=== PATIENT | female | born 1955 | race Caucasian/White ===

== ENCOUNTER 2017-11-06 06:19 | Inpatient (IN) | payer OTHER ==
[~2017-11-06] VITALS: Ht 167.6 cm; Wt 124.7 kg
--- NOTE | ~2017-11-06 | O ---
[facility] [place] [address] OPERATIVE REPORT Name: CHRISTIAN KHAN Room #: 411-P ADM IN M.R.#: [id number] Admission: 11/06/17 Attend Phys: Layne Harper Discharge: Date of : 51 Report #: [id number] THIS REPORT FOR: //name// CC: Layne Jetttami DATE OF SERVICE: 11/09/2017 SURGEON: Sundeep Sainz MD SHOE CEMENTER: None. PREOPERATIVE DIAGNOSES: 1. Gallstone pancreatitis. 2. Morbid obesity (body mass index 44.4). 3. History of Burkitt's lymphoma. 4. Hyperlipidemia. 5. Gastroesophageal reflux disease. 6. Hypothyroidism. 7. Post-chemotherapy neuropathy. POSTOPERATIVE DIAGNOSES: 1. Gallstone pancreatitis. 2. Morbid obesity (body mass index 44.4). 3. History of Burkitt's lymphoma. 4. Hyperlipidemia. 5. Gastroesophageal reflux disease. 6. Hypothyroidism. 7. Post-chemotherapy neuropathy. PROCEDURE: Laparoscopic cholecystectomy with intraoperative cholangiogram. ANESTHESIA: General endotracheal anesthesia and local anesthetic. ESTIMATED BLOOD LOSS: 5 mL. SPECIMEN: Gallbladder. COMPLICATIONS: None appreciated. INDICATIONS FOR PROCEDURE: This is a 62-year-old female patient who developed left-sided abdominal pain and nausea several days ago. CT revealed changes consistent with acute pancreatitis and cholelithiasis as well as hepatic steatosis. Her lipase was elevated at 3544 at the time of her admission. She underwent serial abdominal exams and her lipase was followed. Since her admission, her lipase has normalized. The patient presents now for laparoscopic [facility] [address] [place] [address] OPERATIVE REPORT Name: CHRISTIAN KHAN Room #: 411-P ADM IN M.R.#: [id number] Admission: 11/06/17 Attend Phys: Layne Harper Discharge: Date of : 51 Report #: [id number] cholecystectomy with intraoperative cholangiogram. OPERATIVE FINDINGS: Upon entrance into the abdominal cavity, the liver showed mild steatosis, but no terrell steatohepatitis. The gallbladder itself did not appear to be overtly acutely inflamed; however, there was some edema in the tissue. The stomach, small-bowel and colon and the surrounding area appeared otherwise normal. The critical view consisting of the cystic artery, cystic duct and lower edge of the gallbladder forming a window through which the liver was visible was seen prior to clipping the cystic duct for cholangiogram. The cholangiogram was normal with no filling defects within the biliary tree. Contrast flowed freely into the duodenal sweep. Three clips remained on the cystic duct stump after division of the duct. No other significant intra-abdominal pathology was seen. At the conclusion of the operation, sponge, needle, and instrument counts were correct. There was no evidence for iatrogenic injury. The patient tolerated the procedure well. DESCRIPTION OF PROCEDURE IN DETAIL: After the benefits and risks of the procedure were explained to the patient which include but are not limited to risks of bleeding, infection, injury to the biliary tree, injury to adjacent organs, risk of DVT, pulmonary embolus, postoperative pain and postoperative expectations informed consent was obtained. The patient was identified in the preoperative holding area. The patient was then given IV antibiotics as documented in the chart to comply with the SCIP protocol. The patient was taken to the operating room and was placed in the supine position. The patient was given IV sedation and was intubated without incident. A time-out was performed to correctly identify the patient and procedure. SCDs were placed on the patient's bilateral lower extremities. The patient's abdomen was then prepped and draped in the standard sterile fashion with ChloraPrep. Local anesthetic was infiltrated into the skin and subcutaneous tissue. A periumbilical incision was made with a #15 blade scalpel. The 11-mm Visiport was then placed intraperitoneally with the 10-mm 0-degree angled laparoscope. After confirmation of placement within the peritoneal cavity, the scope was changed to a 10-mm 30 degree angled laparoscope and pneumoperitoneum was achieved with insufflation of carbon dioxide. The patient was placed in the reverse Trendelenburg position, rotated to the patient's left. A subxiphoid 5 mm and right subcostal 5 mm ports times 2 were placed under direct visualization after local anesthetic was infiltrated into the skin and subcutaneous tissue and appropriately sized incisions were made. Operative findings are as noted above. The dome of the gallbladder was retracted in a cephalad direction. The gallbladder peritoneum was scored medially and laterally after takedown of the adhesions to the gallbladder. Dissection was carried out around the cystic artery and cystic duct to identify each structure as entering directly into the gallbladder. The critical view as described above was seen. A Hemoclip was then placed on the cystic duct at its junction with the gallbladder. A ductotomy was made and the cholangiocatheter was passed into the cystic duct. [facility] [address] [place] [address] OPERATIVE REPORT Name: CHRISTIAN KHAN Room #: 411-P ADM IN M.R.#: [id number] Admission: 11/06/17 Attend Phys: Layne Harper Discharge: Date of : 51 Report #: [id number] A clip was placed, contrast was then injected and cholangiogram findings are as noted above. The cholangiocatheter was then removed and the cystic duct was triply clipped distal to the ductotomy. The duct was divided at the ductotomy site with the ultrasonic scalpel. The cystic artery was then divided with the device as well with good hemostasis. The gallbladder was then dissected off the liver bed with the Harmonic scalpel and after fully removing the gallbladder, it was placed in an Endopouch and then removed through the periumbilical port site. The abdominal cavity was then reentered. Other operative findings are as noted above. The liver bed was made hemostatic with electrocautery. After ensuring final hemostasis and ensuring that the clips were secure, the periumbilical port site fascial opening was closed with a simple interrupted 0 PDS suture under direct visualization using the Errol Lopez laparoscopic fascial closure device. The ports were removed and the abdominal cavity was desufflated. The fascial suture was tied. Interrupted subcuticular 4-0 Monocryl sutures and Dermabond were used to close the skin. The patient tolerated the procedure well. The patient was awakened, extubated and taken to the recovery room in stable condition with no apparent intraoperative complications. <ELECTRONICALLY SIGNED> By: Sundeep Sainz MD, FACS 11/10/17 1457 1031 1148 Sundeep Sainz MD, FACS /nt
--- NOTE | ~2017-11-06 | S ---
[facility] [place] [address] SURGICAL PATH RPT PROCEDURE Name: CHRISTIAN KHAN Room #: 411-P DIS IN M.R.#: [id number] Admission: 11/06/17 Date of : 51 Discharge: 11/10/17 Report #: [id number] Path Case #: [id number] PATHOLOGY REPORT COLLECTION DATE: 11/09/2017 RECEIVED DATE: 11/10/2017 SUBMITTING PHYS: Dr. Sundeep Sainz OTHER PHYS: Dr. Layne Tyler SPECIMEN(S) RECEIVED: A.Gallbladder * * * * * * * * * * * * FINAL DIAGNOSIS: Gallbladder, cholecystectomy: - Moderate acute and chronic cholecystitis. - Cholelithiasis. PATHOLOGIST: Gisel Pena M.D. REPORT ELECTRONICALLY SIGNED BY: Gisel Pena M.D. DATE/TIME: 11/11/2017 16:19 * * * * * * * * * * * * GROSS PATHOLOGY: Received in formalin labeled "Shaylee Khan, gallbladder" and consists of a previously opened gallbladder measuring 4.7 x 2.6 cm in greatest dimension. The serosa is glistening and green. The neck region is inked black. The wall averages 0.4 cm thick. The mucosa is velvety and green. Also within the container is a 0.7 cm black and spiky calculus. Erp Engineer sections are submitted as A1. (HAROON; 11/10/2017) CLINICAL HISTORY: Gallbladder disease INITIAL CPT CODE(S): A; 64140 Professional services performed by [facility] at [facility] [address], [place] [address] Technical services performed by [facility] at [address] [place] [id number]. [facility] [address] [place] [address] SURGICAL PATH RPT PROCEDURE Name: BILLCHRISTIAN MCKAYLA Room #: 411-P DIS IN M.R.#: [id number] Admission: 11/06/17 Date of : 51 Discharge: 11/10/17 Report #: [id number] Path Case #: [id number] [facility] [address] [address] PHONE: [phone] DIRECTOR: Juve Katz M.D. * * * END OF REPORT * * *
--- NOTE | ~2017-11-06 | HC ---
[facility] [place] [address] CONSULTATION Name: CHRISTIAN KHAN Room #: 411-P ADM IN M.R.#: [id number] Admission: 11/06/17 Attend Phys: Layne Harper Discharge: Date of : 51 Report #: [id number] THIS REPORT FOR: //name// CC: Tari Tyler MD DATE OF SERVICE: 11/07/2017 REASON FOR CONSULTATION: Abdominal pain. HISTORY OF PRESENT ILLNESS: This is a 62-year-old morbidly obese female patient who was seen in the [place] [facility] with left-sided abdominal pain and nausea starting a couple of days ago. She had undergone incision and drainage of the forehead cyst in her primary care physician's office and had been on doxycycline. She reports having had diarrhea for 2 days ending on Friday. She was seen in the Emergency Room with persistent/worsening abdominal pain, favoring her left side where she was found to have leukocytosis and an elevated lipase. Her CT scan showed findings suggestive of acute pancreatitis as well as cholelithiasis and hepatic steatosis. I have been asked to see the patient for further evaluation and treatment. She did undergo an MRCP, which also showed the acute pancreatitis and peripancreatic edema with no evidence for pseudocyst. There was no choledocholithiasis or biliary ductal dilatation. The patient's lipase remains elevated today and her leukocytosis has worsened. PAST MEDICAL HISTORY: Significant for Burkitt's lymphoma, morbid obesity, hyperlipidemia, GERD, hypothyroidism and neuropathy. PAST SURGICAL HISTORY: Tonsillectomy and adenoidectomy, total abdominal hysterectomy and liver biopsy. MEDICATIONS: Currently include Synthroid, Lovenox, losartan, Pepcid, and p.r.n. medications. ALLERGIES: No known drug allergies. FAMILY HISTORY: Reviewed and noncontributory to this hospitalization. SOCIAL HISTORY: The patient denies use of tobacco, alcohol or illicit drugs. She is accompanied by her and her sister. She is a retired medical record clerk. REVIEW OF SYSTEMS: As per history of present illness. In addition: GENERAL: The patient denies fever or chills. Denies unintentional weight loss. HEENT: Denies changes in taste, vision, hearing, or smell. RESPIRATORY: Denies shortness of breath, COPD or asthma. [address] [address] CONSULTATION Name: CHRISTIAN KHAN Room #: 411-P [facility] IN M.R.#: [id number] Admission: 11/06/17 Attend Phys: Layne Harper Discharge: Date of : 51 Report #: [id number] CARDIOVASCULAR: Denies chest pain or palpitations. GASTROINTESTINAL: As per history of present illness. Denies bright red blood per rectum. Her last colonoscopy was in 2007, reportedly normal. GENITOURINARY: Denies dysuria, urgency, increased urinary frequency or hematuria. MUSCULOSKELETAL: Denies myalgia or arthralgia. NEUROLOGIC: Denies headaches. Reports neuralgia secondary to her chemotherapy for Burkitt's lymphoma. PSYCHIATRIC: Denies depression, anxiety or suicidal ideations. SKIN AND INTEGUMENTARY: Denies new skin lesions, rashes, or moles. ENDOCRINE: Denies polydipsia, polyuria, heat or cold intolerance, has a history of hypothyroidism. HEMATOLOGIC: Denies easy bleeding, bruising or anemia; history of Burkitt's lymphoma. All other review of systems is negative. PHYSICAL EXAMINATION: VITAL SIGNS: Temperature 97.6, blood pressure 155/66, pulse 96, respirations 20. GENERAL: This is a morbidly obese (BMI 44.4) 62-year-old female patient in no acute distress. HEENT: Atraumatic, normocephalic with moist mucosal membranes. She has no scleral icterus. NECK: Supple, no appreciable lymphadenopathy. Trachea is midline. CHEST: Clear bilaterally. No crackles or wheezes. CARDIOVASCULAR: Regular rate and rhythm. ABDOMEN: Soft, but tender to palpation, greatest in the left mid abdomen. She has no rebound or guarding. No palpable masses, no appreciable hernias. She has a negative Osei sign. GENITOURINARY: Normal external female genitalia. EXTREMITIES: No clubbing, cyanosis or edema. NEUROLOGIC: Cranial nerves 2-12 grossly intact. PSYCHIATRIC: Normal mood and affect. SKIN AND INTEGUMENTARY: No acute inflammatory changes, rashes, lesions, or jaundice is seen. LABORATORY DATA: CBC from today shows a white blood cell count 20.5 (admission white blood cell count 16.8), hemoglobin 13.3, hematocrit 40.1 and platelets 188. Electrolytes showed a sodium 141, potassium 4.3, chloride 105, CO2 of 29, BUN 14, creatinine 0.9 and glucose 90. Her alkaline phosphatase was elevated at 118. However, her transaminases were normal/low normal. Amylase was elevated at 314 and lipase 1146 (3544 yesterday). RADIOLOGIC STUDIES: Both CT abdomen and pelvis as well as MRCP findings are as noted above. [facility] [address] [place] [address] CONSULTATION Name: CHRISTIAN KHAN Room #: 411-P ADM IN M.R.#: [id number] Admission: 11/06/17 Attend Phys: Layne Harper Discharge: Date of : 51 Report #: [id number] IMPRESSION AND PLAN: This is a 62-year-old female patient with the above listed comorbidities, who has abdominal pain, favoring her left side with an elevated lipase and leukocytosis. Based on her symptomatology, she appears to have gallstone pancreatitis. We discussed the pathophysiology and natural history as well as treatment alternatives and surgical options. The patient would ultimately benefit from cholecystectomy provided her lipase improves to normal/near normal levels. In the meantime, she will need bowel rest and deep vein thrombosis/gastrointestinal prophylaxis. I will follow along with serial abdominal exams as well as labs and x-rays as necessary. I sincerely appreciate the opportunity to participate in the care of this patient and will leave further recommendations and orders in the electronic medical record as appropriate. Thank you very much. <ELECTRONICALLY SIGNED> By: Sundeep Sainz MD, FACS 11/09/17 0856 1353 0114 Sundeep Sainz MD, FACS /nt
[2017-11-06 06:20] VITALS: BP 199/68
[2017-11-06 07:08] LABS: HEMATOCRIT 42.3 % (37.0-47.0); MCHC 33.1 g/dL (28.0-37.0); MCV 90.5 fL (80.0-100.0); RBC 4.67 mil/uL (4.20-5.00); RDW 13.7 % (10.5-14.5); WBC 16.8 thou/uL (4.0-11.0)
[2017-11-06 07:17] LABS: CALCIUM 9.4 mg/dL (8.5-10.1); CREATININE 0.9 mg/dL (0.6-1.0)
[2017-11-06 07:33] LABS: TOTAL BILIRUBIN 0.7 mg/dL (<0.1-1.0); TOTAL PROTEIN 6.2 g/dL (6.4-8.2)
[2017-11-06] MEDS ORDERED: HYDROCODON-ACE1 EAC8 PO (08:06)
[2017-11-06 08:56] LABS: CHOLESTEROL 112 mg/dL (<200); HDL CHOLESTEROL 50 mg/dL (>40); LDL CHOLESTEROL 54 mg/dL (<100); TC:HDL 2.2 Ratio (Not establshd); TRIGLYCERIDE 41 mg/dL (<150); VLDL 8 mg/dL (<40)
[2017-11-06 08:57] LABS: SERUM ASSESSMENT Clear
[2017-11-06] MEDS ORDERED: NEURONTIN 300300 M1 PO (10:15)
[2017-11-06] MEDS ORDERED: DIOVAN 80 MG TA80 M1 PO (10:15)
[2017-11-06] MEDS ORDERED: FLONASE 0.05%50 MCG NASAL (10:20)
[2017-11-06] MEDS ORDERED: PREVACID30 MG PO (10:20)
[2017-11-06] MEDS ORDERED: SIMVASTATIN40 MG PO (10:20)
[2017-11-06] MEDS ORDERED: SYNTHROID112 MCG PO (10:20)
[2017-11-06 11:40] VITALS: BP 154/60
[2017-11-06 12:14] VITALS: BP 158/54
[2017-11-06 13:00] VITALS: BP 155/78
[2017-11-06 19:28] VITALS: BP 153/60
[2017-11-07 04:00] VITALS: BP 155/72
[2017-11-07 04:10] LABS: HEMATOCRIT 40.1 % (37.0-47.0); HEMOGLOBIN 13.3 gm/dL (12.0-15.0); MCH 30.5 pg (26.0-34.0); MCHC 33.2 g/dL (28.0-37.0); RBC 4.36 mil/uL (4.20-5.00); RDW 14.2 % (10.5-14.5); WBC 20.5 thou/uL (4.0-11.0)
[2017-11-07 04:27] LABS: ALBUMIN 2.6 g/dL (3.4-5.0); CALCIUM 8.9 mg/dL (8.5-10.1); CREATININE 0.9 mg/dL (0.6-1.0); POTASSIUM 4.3 mmol/L (3.5-5.1); TOTAL BILIRUBIN 0.6 mg/dL (<0.1-1.0)
[2017-11-07 08:04] VITALS: BP 155/66
[2017-11-07 16:26] VITALS: BP 156/63
[2017-11-07 19:00] VITALS: BP 182/62
[2017-11-08 04:00] VITALS: BP 164/69
[2017-11-08 08:00] VITALS: BP 150/69
[2017-11-08 16:20] VITALS: BP 148/65
[2017-11-08 20:00] VITALS: BP 158/62
[2017-11-09] VITALS (8 sets, daily range): BP systolic 144–158; BP diastolic 54–62
[2017-11-09 06:19] LABS: BASOPHILS 0.1 % (0.0-2.0); EOSINOPHILS 0.6 % (0.0-3.0); HEMATOCRIT 37.2 % (37.0-47.0); HEMOGLOBIN 12.2 gm/dL (12.0-15.0); LYMPHOCYTES 8.7 % (24.0-44.0); MCH 30.2 pg (26.0-34.0); MCHC 32.7 g/dL (28.0-37.0); MCV 92.3 fL (80.0-100.0); MONOCYTES 6.8 % (1.0-8.0); PLATELET COUNT 148 thou/uL (150-400); POLYS 83.8 % (36.0-66.0); RBC 4.03 mil/uL (4.20-5.00); RDW 13.9 % (10.5-14.5); WBC 17.9 thou/uL (4.0-11.0)
[2017-11-09 06:32] LABS: ALBUMIN 2.3 g/dL (3.4-5.0); CALCIUM 9.4 mg/dL (8.5-10.1); PHOSPHORUS 3.3 mg/dL (2.5-4.9); POTASSIUM 3.6 mmol/L (3.5-5.1); TOTAL BILIRUBIN 0.6 mg/dL (<0.1-1.0)
[2017-11-09] MEDS ORDERED: HYDROCODONE-AP1 EAC6 PO (10:19)
[2017-11-09] MEDS ORDERED: SENEXON-S TABL1 EACH PO (10:19)
[2017-11-10 04:00] VITALS: BP 151/43
[2017-11-10 06:21] LABS: ABSOLUTE NEUTROPHILS 8.9 thou/uL (1.4-8.2); BASOPHILS 0.1 % (0.0-2.0); HEMATOCRIT 36.3 % (37.0-47.0); LYMPHOCYTES 11.3 % (24.0-44.0); MCH 30.6 pg (26.0-34.0); MCV 92.7 fL (80.0-100.0); MONOCYTES 4.9 % (1.0-8.0); PLATELET COUNT 139 thou/uL (150-400); POLYS 83.7 % (36.0-66.0); RBC 3.92 mil/uL (4.20-5.00); WBC 10.7 thou/uL (4.0-11.0)
[2017-11-10 06:42] LABS: CALCIUM 9.3 mg/dL (8.5-10.1); CREATININE 0.9 mg/dL (0.6-1.0); POTASSIUM 3.9 mmol/L (3.5-5.1); TOTAL BILIRUBIN 0.3 mg/dL (<0.1-1.0)
[2017-11-10 07:44] VITALS: BP 155/71
[2017-11-10] MEDS ORDERED: HYDROCODON-ACE1 EAC8 PO (09:40)
[2017-11-10 13:34] VITALS: BP 155/71
== END 2017-11-10 18:26 | disposition home or self-care (01) | DRG 417 ==
LOC: ER 06:19 → EROBS 08:02 → 4N 08:02
PROVIDERS: Emergency Medicine; Hospitalist; Surgery
PROC: BF131ZZ Fluoroscopy of Gallbladder and Bile Ducts using Low Osmolar Contrast (ICD-10-PCS; principal; 2017-11-09)
PROC: 0FT44ZZ Resection of Gallbladder, Percutaneous Endoscopic Approach (ICD-10-PCS; principal; 2017-11-09)
DX: K85.10 Biliary acute pancreatitis without necrosis or infection (principal); E43 Unspecified severe protein-calorie malnutrition; Z68.41 Body mass index [BMI] 40.0-44.9, adult; K80.20 Calculus of gallbladder without cholecystitis without obstruction; E03.9 Hypothyroidism, unspecified; E66.01 Morbid (severe) obesity due to excess calories; E78.5 Hyperlipidemia, unspecified; K21.9 Gastro-esophageal reflux disease without esophagitis; G62.9 Polyneuropathy, unspecified; I10 Essential (primary) hypertension; Z90.49 Acquired absence of other specified parts of digestive tract; Z90.710 Acquired absence of both cervix and uterus
CPT/HCPCS: 10790; 50101; 50249; 50411; 50555; 50558; 50962; 51975; 52265; 52266; 53307; 54022; 54118; 55245; 55317; 56462; 56525; 56526; 62110; 62900; 64031; 70005

== ENCOUNTER 2018-07-05 17:21 | Inpatient (IN) | payer OTHER ==
[~2018-07-05] VITALS: Ht 152.4 cm; Wt 114.9 kg
[~2018-07-05 17:21] MED LIST: DIOVAN 80 MG TA80 M1 PO; FLONASE 0.05%50 MCG NASAL; HYDROCODON-ACE1 EAC8 PO; HYDROCODONE-AP1 EAC6 PO; NEURONTIN 300300 M1 PO; PREVACID30 MG PO; SENEXON-S TABL1 EACH PO; SIMVASTATIN40 MG PO; SYNTHROID112 MCG PO
[2018-07-05 17:23] VITALS: BP 175/69
[2018-07-05 18:17] LABS: CALCIUM 10.4 mg/dL (8.5-10.1); CREATININE 1.3 mg/dL (0.6-1.0)
[2018-07-05 18:23] LABS: ALBUMIN 2.9 g/dL (3.4-5.0); TOTAL BILIRUBIN 0.6 mg/dL (<0.1-1.0); TOTAL PROTEIN 8.2 g/dL (6.4-8.2)
[2018-07-05 18:36] LABS: PLATELET COUNT 233 thou/uL (150-400)
[2018-07-05 18:41] LABS: CORRECTED WBC 9.9 thou/uL (4.0-11.0); HEMOGLOBIN 15.2 gm/dL (12.0-15.0); RBC 4.74 mil/uL (4.20-5.00); WBC 9.9 thou/uL (4.0-11.0)
[2018-07-05 18:42] LABS: HEMATOCRIT 43.7 % (37.0-47.0); MCH 32.1 pg (26.0-34.0); MCHC 34.8 % (28.0-37.0); MCV 92.2 fL (80.0-100.0); RDW 13.2 % (10.5-14.5)
[2018-07-05 21:17] VITALS: BP 169/59
[2018-07-05 21:32] VITALS: BP 169/59
[2018-07-05 21:45] VITALS: BP 148/52
[2018-07-06 05:35] VITALS: BP 139/46
[2018-07-06 08:58] VITALS: BP 141/43
[2018-07-06 16:12] VITALS: BP 136/49
[2018-07-06 19:33] VITALS: BP 149/55
[2018-07-07 04:33] VITALS: BP 147/56
[2018-07-07 08:14] VITALS: BP 152/55
[2018-07-07 10:04] VITALS: BP 152/55
[2018-07-07 19:17] VITALS: BP 148/50
[2018-07-08 02:55] VITALS: BP 150/46
[2018-07-08 08:41] VITALS: BP 151/63
[2018-07-08] MEDS ORDERED: CLEOCIN HCL150 MG PO (10:33)
== END 2018-07-08 17:04 | disposition home or self-care (01) | DRG 603 ==
LOC: ER 17:21 → 4E 19:58 → EROBS 19:58 → ER 21:35 → 4E 21:48 → SICU 07-07 21:55 → ENTRNSPT 07-08 16:27 → SICU 07-08 17:04
PROVIDERS: Physician Assistant
PROC: 0H91XZZ Drainage of Face Skin, External Approach (ICD-10-PCS; principal; 2018-07-05)
DX: L03.211 Cellulitis of face (principal); L02.01 Cutaneous abscess of face; E87.2 Acidosis; E44.0 Moderate protein-calorie malnutrition; Z68.42 Body mass index [BMI] 45.0-49.9, adult; E03.9 Hypothyroidism, unspecified; Z88.1 Allergy status to other antibiotic agents; Z88.2 Allergy status to sulfonamides; Z88.8 Allergy status to other drugs, medicaments and biological substances; E78.5 Hyperlipidemia, unspecified; I10 Essential (primary) hypertension; Z90.49 Acquired absence of other specified parts of digestive tract; Z90.710 Acquired absence of both cervix and uterus; Z79.899 Other long term (current) drug therapy
CPT/HCPCS: 10084; 15002

== ENCOUNTER 2018-07-13 09:52 | Inpatient (IN) | payer OTHER ==
[~2018-07-13] VITALS: Ht 167.6 cm; Wt 127.0 kg
--- NOTE | ~2018-07-13 | O ---
[facility] [place] [address] OPERATIVE REPORT Name: CHRISTIAN KHAN Room #: 420-P ADM IN M.R.#: [id number] Admission: 07/13/18 Attend Phys: Schuyler Bergeron MD Discharge: Date of : 51 Report #: [id number] THIS REPORT FOR: //name// CC: Tariq Bergeron DATE OF SERVICE: 07/15/2018 PREOPERATIVE DIAGNOSIS: Acute and chronic frontal, ethmoid and maxillary sinusitis. POSTOPERATIVE DIAGNOSIS: Acute and chronic frontal, ethmoid and maxillary sinusitis. OPERATIVE PROCEDURE: Endoscopic bilateral complete ethmoidectomy with frontal duct explorations and bilateral maxillary antrostomies with removal of tissue image guidance surgery. ANESTHESIA: General by laryngeal mask. DESCRIPTION OF PROCEDURE: The patient was taken to the operating room and placed in supine position. General anesthesia was induced by laryngeal mask. Once adequate general anesthesia was obtained, local nasal anesthesia was induced by submucoperiosteal injection of 1% lidocaine with 1:100,000 epinephrine and topical application of cocaine solution. The patient was then draped in a sterile manner. The patient was also calibrated to the landmarks image guidance system for image guidance surgery throughout the procedure. The nasal endoscope was used to visualize the left nasal cavity. The patient had a partial maxillary antrostomy, but there was quite a bit of swelling anteriorly at the area of the natural opening and this was removed using the microdebrider. There was scarring in the middle meatus and there was terrell purulence coming from posteriorly. There was very extreme polypoid tissue in the area of the ethmoidal bulla and this was removed using the microdebrider. An ethmoidectomy was performed by removing the ethmoidal bulla and then following ethmoid air cells back to and through the basal lamella and then forward along the lamina papyracea cleaning polypoid tissue and terrell purulence. I also followed the ethmoid air cells up into the frontal duct and cannulated the duct with a curved suction as well as the curved blade on the microdebrider. This was verified using the image guidance system. FloSeal was placed into the ethmoid cavity and middle meatus for hemostasis. The exact same procedure was performed on the right side. There was terrell purulence and polyps on that side as well. The patient tolerated the procedure well. Blood loss approximately 50 mL. [facility] [address] [place] [address] OPERATIVE REPORT Name: CHRISTIAN KHAN MCKAYLA Room #: 420-P [facility] IN M.R.#: [id number] Admission: 07/13/18 Attend Phys: Schuyler Bergeron MD Discharge: Date of : 51 Report #: [id number] patient was then awoken and taken to the recovery room in stable condition for postoperative monitoring. <ELECTRONICALLY SIGNED> By: Reinaldo Brown MD 07/15/18 1759 1211 1245 Reinaldo Brown MD /isaac
--- NOTE | ~2018-07-13 | HC ---
[facility] [place] [address] CONSULTATION Name: CHRISTIAN KHAN Room #: 420-P ADM IN M.R.#: [id number] Admission: 07/13/18 Attend Phys: Schuyler Bergeron MD Discharge: Date of : 51 Report #: [id number] THIS REPORT FOR: //name// CC: Tariq Bergeron DATE OF SERVICE: 07/14/2018 REASON FOR CONSULTATION: Frontal sinusitis with osteomyelitis. HISTORY OF PRESENT ILLNESS: The patient is a 63-year-old with history of Burkitt's lymphoma, chronic sinusitis disease. Treated for her Burkitt's lymphoma in 2002. No head or neck disease reported from the patient. She said she had a liver lesion, breast lesion and a lung lesion. Biopsy of the breast lesion confirmed the diagnosis. She underwent chemotherapy without radiation. Prior to this diagnosis, she was treated for chronic sinusitis and had endoscopic sinus surgery involving both maxillary sinuses. Subsequently, she has had chronic sinus symptoms with postnasal drip and congestion on a longstanding basis. She fluctuates with purulent drainage from nasal passage, some postnasal. She noticed in October of this past year she had an abscess develop to the center of her forehead. This was incised and drained, treated with doxycycline. No pathogens reported, but I have not seen any culture results from that date. It did heal only to recur now over the last probably 2 weeks ago. She was hospitalized on 07/05/2018 where incision and drainage has undergone twice. Dr. Sainz performed the procedure. Cultures were negative. Treated with clindamycin. She had previously been on Bactrim. She was discharged home only to have the drainage recur. Now rehospitalized. Imaging studies showed evidence of extensive frontal sinusitis with erosion through the frontal skull leading to this sinus tract. No fever, chills or sweats. She has had no further headaches. She does have intermittent sinus congestion type headaches. She has had no visual changes, no auditory changes. Her appetite has been reasonable. She has had no vertigo or instability. ALLERGIES: DOXYCYCLINE, BACTRIM, TRIMETHOPRIM. MEDICATIONS: As noted on her DEC. PAST MEDICAL HISTORY: Sinus surgery in 2000, Burkitt's lymphoma treated with chemotherapy in 2001, hypothyroidism, hypertension, hyperlipidemia, laparoscopic cholecystectomy, gallstone pancreatitis. FAMILY HISTORY: Noncontributory. SOCIAL HISTORY: Nonsmoker, no significant alcohol intake. REVIEW OF SYSTEMS: Denies any change in mentation or other neurologic issues. [address] [address] CONSULTATION Name: CHRISTIAN KHAN Room #: 420-P [facility] IN ..#: [id number] Admission: 07/13/18 Attend Phys: Schuyler Bergeron MD Discharge: Date of : 51 Report #: [id number] No significant cough or sputum production. No chest pain or palpitations. No GI or complaints. She developed a rash earlier suspecting drug reaction including Bactrim versus clindamycin. Ten-point review of systems otherwise negative. PHYSICAL EXAMINATION: GENERAL APPEARANCE: She was alert and cooperative, in no acute distress. VITAL SIGNS: Stable. HEENT: She had a mid frontal sinus tract with yellow purulent drainage. Mild surrounding erythema. This area was not probed. No frontal sinus tenderness. Eyes unremarkable with pupils equal, round and reactive to light. No scleral icterus. No conjunctivitis. Extraocular movements were normal, full range. Nares unremarkable. Mouth without mucositis or lesion. No postnasal drip evident. No periorbital swelling. NECK: Supple. No thyromegaly or mass. LUNGS: Clear. HEART: Regular. ABDOMEN: Soft and nontender. EXTREMITIES: Without cyanosis, clubbing or edema. Moderately obese. SKIN: Petechial type rash mostly in her back, small amount on her abdomen and lower extremities. No peripheral adenopathy palpable. NEUROLOGIC: Normal with normal cranial nerves, strength and sensation throughout. LABORATORY STUDIES: Sodium 135, potassium 4.6, bicarbonate 29, creatinine 1.1. Hemoglobin 12.5, platelet count 276,000, white count was 12.2. Cultures reviewed from 07/05/2018 with no growth, from 07/14/2018 is pending and blood cultures are negative to date. CT scan of the sinuses and head were reviewed. She has a left frontal opacification with sinus tract through the frontal bone. Soft tissue swelling noted as well. Sphenoid sinusitis and some ethmoid and maxillary thickening as well. No intracranial extension noted. This CT scan was without contrast. IMPRESSION: 1. Chronic sinusitis that has been ongoing for an extensive period of time. First evidence of erosion was in October of this past year. This is in the setting of chronic sinus disease and a history of Chaim's lymphoma. The Burkitt's was remote. 2. Obesity. 3. Hypothyroidism. 4. Drug rash. RECOMMENDATION: I have discussed with Otolaryngology this afternoon. We will proceed with surgical debridement tomorrow. Recommend repeating cultures. Also send path for further evaluation for possible malignancy, although this seems [facility] [address] [place] [address] CONSULTATION Name: CHRISTIAN KHAN Room #: 420-P ADM IN M.R.#: [id number] Admission: 07/13/18 Attend Phys: Schuyler Bergeron MD Discharge: Date of : 51 Report #: [id number] less likely now over 15 years from her previous diagnosis. We will continue IV antibiotic therapy with zosyn. Screen MRSA. Further recommendations following surgical intervention. <ELECTRONICALLY SIGNED> By: Shaw Villasenor MD 07/15/18 1040 [id number] 2320 Shaw Villasenor MD /nt
--- NOTE | ~2018-07-13 | HC ---
[facility] [place] [address] CONSULTATION Name: CHRISTIAN KHAN Room #: 420-P ADM IN M.R.#: [id number] Admission: 07/13/18 Attend Phys: Schuyler Bergeron MD Discharge: Date of : 51 Report #: [id number] THIS REPORT FOR: //name// CC: Tariq Bergeron DATE OF SERVICE: 07/14/2018 REASON FOR CONSULTATION: Forehead abscess. HISTORY OF PRESENT ILLNESS: This is a 63-year-old female patient with whom I am familiar from evaluation last week. She presented back to the emergency department with increasing drainage, redness and swelling to her forehead. She has been readmitted here in the hospital. While in the emergency department, she did undergo CT scan of the head, which demonstrated soft tissue swelling, thickening, and inflammatory edges in the midline, left paramedial frontal region consistent with frontal abscess within extension of inflammatory process in the left frontal sinus. She has been seen in consultation by ENT and planned for surgical intervention. The patient denies any pain at this time, states she is feeling reasonably well. PAST MEDICAL HISTORY: Prior history of Burkitt's lymphoma, morbid obesity, hyperlipidemia, gastroesophageal reflux, hypothyroidism, and neuropathy. ALLERGIES: DOXYCYCLINE and SULFA. MEDICATIONS: Include valsartan, gabapentin, levothyroxine, simvastatin, lansoprazole, fluticasone, clindamycin, and hydrocodone. SOCIAL HISTORY: Negative for alcohol or tobacco use. FAMILY HISTORY: Noncontributory. REVIEW OF SYSTEMS: CONSTITUTIONAL: No fever, chills or weight loss. NEUROLOGICAL: The patient denies focal weakness, numbness or tingling. EYES: The patient denies visual changes, redness or drainage. ENT: The patient denies nasal drainage or sore throat. She does have some fullness in her forehead and sinus region. PULMONARY: The patient denies cough or shortness of breath. GASTROINTESTINAL: The patient denies nausea, vomiting, diarrhea or abdominal pain. ORTHOPEDIC: The patient denies pain or swelling of the extremities. Other systems on a 14-point review of systems are negative. [address] [address] CONSULTATION Name: CHRISTIAN KHAN Room #: 420-P [facility] IN .R.#: [id number] Admission: 07/13/18 Attend Phys: Schuyler Bergeron MD Discharge: Date of : 51 Report #: [id number] PHYSICAL EXAMINATION: VITAL SIGNS: At this time include temperature 36.7, pulse 53, respiratory rate of 20, blood pressure 141/47. GENERAL: This is a chronically ill-appearing female patient who appears to be in mild discomfort. HEENT: Head demonstrates an abscess with some drainage to the center portion of her forehead, mild erythema. Nose and throat clear. NECK: Supple. LUNGS: Clear. HEART: Sounds present. ABDOMEN: Bowel sounds present. NEUROLOGIC: The patient is alert, oriented, and appropriate. CLINICAL IMPRESSION: Persistently draining abscess to the forehead with apparent extension from frontal and/or ethmoidal sinuses. RECOMMENDATIONS: At this point in time, she is scheduled for an operative procedure tomorrow. Additional wound care recommendations pending outcome of surgery. At this point, we will not pack the wound, but simply cover with a bordered foam in order to prevent to minimize drainage. At this time, we will recommend aggressive nutritional support to maximize wound healing, continue with antibiotic therapy and continue with current medications. I appreciate being asked to see her again in consultation. <ELECTRONICALLY SIGNED> By: Jacky Juan MD 07/15/18 0750 [id number] Jacky Juan MD /nt
[~2018-07-13 09:52] MED LIST changes: +CLEOCIN HCL150 MG PO
[2018-07-13 10:03] VITALS: BP 173/62
[2018-07-13 11:59] LABS: ABSOLUTE NEUTROPHILS 11.8 thou/uL (1.4-8.2); BASOPHILS 0.4 % (0.0-2.0); EOSINOPHILS 1.7 % (0.0-3.0); HEMOGLOBIN 13.8 gm/dL (12.0-15.0); LYMPHOCYTES 8.7 % (24.0-44.0); MCH 31.3 pg (26.0-34.0); MCHC 33.7 g/dL (28.0-37.0); MCV 92.8 fL (80.0-100.0); MONOCYTES 6.4 % (1.0-8.0); PLATELET COUNT 296 thou/uL (150-400); POLYS 82.8 % (36.0-66.0); RBC 4.42 mil/uL (4.20-5.00); RDW 13.6 % (10.5-14.5); WBC 14.3 thou/uL (4.0-11.0)
[2018-07-13 12:06] LABS: CREATININE 1.2 mg/dL (0.6-1.0); POTASSIUM 5.1 mmol/L (3.5-5.1)
[2018-07-13 13:54] VITALS: BP 169/56
[2018-07-13 14:42] VITALS: BP 169/56
[2018-07-13 16:28] VITALS: BP 142/67
[2018-07-13 19:42] VITALS: BP 151/61
[2018-07-14 05:39] LABS: HEMATOCRIT 37.9 % (37.0-47.0); HEMOGLOBIN 12.5 gm/dL (12.0-15.0); MCV 93.9 fL (80.0-100.0); RBC 4.03 mil/uL (4.20-5.00); RDW 13.6 % (10.5-14.5); WBC 12.2 thou/uL (4.0-11.0)
[2018-07-14 05:51] LABS: CALCIUM 9.4 mg/dL (8.5-10.1); CREATININE 1.1 mg/dL (0.6-1.0); POTASSIUM 4.6 mmol/L (3.5-5.1)
[2018-07-14 07:39] VITALS: BP 141/47
[2018-07-14 19:44] VITALS: BP 155/64
[2018-07-15 04:02] LABS: ABSOLUTE NEUTROPHILS 6.7 thou/uL (1.4-8.2); BASOPHILS 0.7 % (0.0-2.0); EOSINOPHILS 3.3 % (0.0-3.0); HEMATOCRIT 38.8 % (37.0-47.0); HEMOGLOBIN 12.9 gm/dL (12.0-15.0); LYMPHOCYTES 23.2 % (24.0-44.0); MCH 31.2 pg (26.0-34.0); MCHC 33.3 g/dL (28.0-37.0); MCV 93.8 fL (80.0-100.0); MONOCYTES 6.9 % (1.0-8.0); PLATELET COUNT 300 thou/uL (150-400); POLYS 65.9 % (36.0-66.0); RBC 4.14 mil/uL (4.20-5.00); RDW 13.7 % (10.5-14.5); WBC 10.1 thou/uL (4.0-11.0)
[2018-07-15 04:03] LABS: CALCIUM 9.5 mg/dL (8.5-10.1); CREATININE 1.2 mg/dL (0.6-1.0); POTASSIUM 4.2 mmol/L (3.5-5.1)
[2018-07-15 12:07] VITALS: BP 153/68
[2018-07-15 17:23] VITALS: BP 152/69
[2018-07-15 20:46] VITALS: BP 157/74
[2018-07-16 04:42] VITALS: BP 142/62
[2018-07-16 06:24] LABS: ABSOLUTE NEUTROPHILS 10.7 thou/uL (1.4-8.2); BASOPHILS 0.3 % (0.0-2.0); HEMATOCRIT 37.4 % (37.0-47.0); HEMOGLOBIN 12.4 gm/dL (12.0-15.0); MCH 31.2 pg (26.0-34.0); MCHC 33.2 g/dL (28.0-37.0); MONOCYTES 2.7 % (1.0-8.0); PLATELET COUNT 303 thou/uL (150-400); RBC 3.98 mil/uL (4.20-5.00); RDW 13.8 % (10.5-14.5); WBC 12.9 thou/uL (4.0-11.0)
[2018-07-16 06:31] LABS: CALCIUM 9.1 mg/dL (8.5-10.1); CREATININE 1.1 mg/dL (0.6-1.0); POTASSIUM 4.2 mmol/L (3.5-5.1)
[2018-07-16 07:38] VITALS: BP 150/73
[2018-07-16 19:33] VITALS: BP 144/63
[2018-07-17 05:12] VITALS: BP 158/63
[2018-07-17 07:13] VITALS: BP 153/53
[2018-07-17 13:38] VITALS: BP 153/53
[2018-07-17] MEDS ORDERED: CEFTRIAXON1 GM/50 M1 IVPB (16:27)
[2018-07-17 16:47] VITALS: BP 153/53
== END 2018-07-17 17:11 | disposition home health service (06) | DRG 853 ==
LOC: ER 09:52 → EROBS 13:19 → 4E 13:19
PROVIDERS: Hospitalist; Nurse Practitioner Family
DX: A41.9 Sepsis, unspecified organism (principal); E43 Unspecified severe protein-calorie malnutrition; M86.8X8 Other osteomyelitis, other site; L03.811 Cellulitis of head [any part, except face]; L02.01 Cutaneous abscess of face; N17.9 Acute kidney failure, unspecified; Z68.42 Body mass index [BMI] 45.0-49.9, adult; E03.9 Hypothyroidism, unspecified; I10 Essential (primary) hypertension; E78.5 Hyperlipidemia, unspecified; L27.0 Generalized skin eruption due to drugs and medicaments taken internally; E66.01 Morbid (severe) obesity due to excess calories; K21.9 Gastro-esophageal reflux disease without esophagitis; E78.00 Pure hypercholesterolemia, unspecified; J01.10 Acute frontal sinusitis, unspecified; G62.9 Polyneuropathy, unspecified; J01.20 Acute ethmoidal sinusitis, unspecified; Z90.710 Acquired absence of both cervix and uterus; Z88.2 Allergy status to sulfonamides; Z90.49 Acquired absence of other specified parts of digestive tract; Z88.8 Allergy status to other drugs, medicaments and biological substances; Z92.21 Personal history of antineoplastic chemotherapy; Z28.21 Immunization not carried out because of patient refusal
CPT/HCPCS: 10183; 27000; 50010; 50101; 50286; 50386; 50398; 50573; 51751; 52290; 52291; 62110; 62900; 64037; 70005

== ENCOUNTER → 2018-09-28 | Outpatient (CLI) | payer OTHER ==
[~2018-09-28] MED LIST changes: +CEFTRIAXON1 GM/50 M1 IVPB
== END ==
LOC: CAT 09:11
DX: J32.0 Chronic maxillary sinusitis (principal); J32.1 Chronic frontal sinusitis; J32.2 Chronic ethmoidal sinusitis; J32.3 Chronic sphenoidal sinusitis

== ENCOUNTER 2018-10-02 12:28 | Inpatient (IN) | payer OTHER ==
[~2018-10-02] VITALS: Ht 167.6 cm; Wt 115.4 kg
--- NOTE | ~2018-10-02 | 2DMMODE ---
[facility] [address] [place] [address] 2 D/M-MODE ECHOCARDIOGRAM Name: CHRISTIAN KHAN Room #: 460-P ADM IN M.R.#: [id number] Admission: 10/02/18 Attend Phys: Layne Ward Discharge: Date of : 51 Date of Service: 10/05/18 0950 Report #: [id number] THIS REPORT FOR: //name// APPROVED REPORT Study performed: 10/05/2018 08:32:38 EXAM: Comprehensive 2D, Doppler, and color-flow Echocardiogram Patient Location: Bedside Room #: 460 Status: routine BSA: 2.20 HR: 90 bpm BP: 155/35 mmHg Rhythm: NSR Other Information Study Quality: Adequate Indications Edema, pleural effusions. Hx:HTN, HLP 2D Dimensions RVDd: 36.90 mm IVSd: 9.92 (7-11mm) LVOT Diam: 18.85 (18-24mm) LVDd: 48.03 mm PWd: 10.55 (7-11mm) LVDs: 33.75 (25-40mm) Aortic Root: 35.25 mm Volumes Left Atrial Volume (Systole) Single Plane 4CH: 75.30 mL Single Plane 2CH: 86.31 mL LA ESV Index: 39.00 mL/m2 Aortic Valve AoV Peak Vega.: 2.33 m/s AO Peak Gr.: 23.61 mmHg LVOT Max P.42 mmHg LVOT Max V: 1.69 m/s DELBERT Vmax: 2.02 cm2 Mitral Valve E/A Ratio: 1.4 MV Decel. Time: 144.75 ms MV E Max Vega.: 1.52 m/s [facility] [address] [place] [address] 2 D/M-MODE ECHOCARDIOGRAM Name: CHRISTIAN KHAN Room #: [address] [place] [address] IN ..#: [id number] Admission: 10/02/18 Attend Phys: Layne Ward Discharge: Date of : 51 Date of Service: 10/05/18 0950 Report #: [id number] MV A Vega.: 1.05 m/s MV PHT: 41.98 ms IVRT: 34.60 ms Pulmonary Valve PV Peak Vega.: 1.53 m/s PV Peak Gr.: 9.34 mmHg Pulmonary Vein P Vein S: 0.93 m/s P Vein A: 0.49 m/s P Vein D: 1.07 m/s P Vein A Dur.: 86.5 msec P Vein S/D Ratio: 0.87 Tricuspid Valve TR Peak Vega.: 2.95 m/s RAP Estimate: 5.00 mmHg TR Peak Gr.: 34.77 mmHg PA Pressure: 40.00 mmHg Left Ventricle The left ventricle is normal size. There is normal LV segmental wall motion. There is normal left ventricular wall thickness. Left ventricular systolic function is normal. LVEF is 60-65%. Moderate diastolic dysfunction is present (pseudonormal filling). Right Ventricle The right ventricle is normal size. The right ventricular systolic function is normal. Atria Left atrium is dilated. The right atrium size is normal. Aortic Valve Aortic valve leaflets are mildly thickened. Mild aortic regurgitation. There is no aortic valvular stenosis. Mitral Valve Mitral valve leaflets are mildly thickened. Mild mitral regurgitation. Tricuspid Valve The tricuspid valve is normal in structure. Mild tricuspid regurgitation. Estimated PAP is 40mmHg. Pulmonic Valve The pulmonary valve is normal in structure. Trace pulmonic regurgitation. [facility] [address] [address] 2 D/M-MODE ECHOCARDIOGRAM Name: CHRISTIAN KHAN Room #: 460-P [facility] IN M.R.#: [id number] Admission: 10/02/18 Attend Phys: Layne Ward Discharge: Date of : 51 Date of Service: 10/05/18 0950 Report #: [id number] Great Vessels The aortic root is normal in size. Ascending aorta is not well visualized. IVC is normal in size and collapses >50% with inspiration. Pericardium There is no pericardial effusion. <Conclusion> The left ventricle is normal size. There is normal left ventricular wall thickness. Left ventricular systolic function is normal. Moderate diastolic dysfunction is present (pseudonormal filling). The right ventricle is normal size. Left atrium is dilated. Mild aortic regurgitation. Mitral valve leaflets are mildly thickened. Mild mitral regurgitation. Mild tricuspid regurgitation. Estimated PAP is 40mmHg. <ELECTRONICALLY SIGNED> By: Brandon Song MD 10/05/18949 9 9 Brandon Song MD /INF
--- NOTE | ~2018-10-02 | HC ---
[facility] [place] [address] CONSULTATION Name: CHRISTIAN KHAN Room #: 460-P ADM IN M.R.#: [id number] Admission: 10/02/18 Attend Phys: Layne Harper Discharge: Date of : 51 Report #: [id number] THIS REPORT FOR: //name// CC: Layne Tyler DATE OF SERVICE: 10/02/2018 REASON FOR CONSULTATION: I was asked to evaluate concerning chronic sinusitis with frontal osteomyelitis and evidence of hepatitis. HISTORY OF PRESENT ILLNESS: The patient was a 63-year-old initially evaluated in July of this past year where she was seen with frontal sinus tract. She has had chronic sinusitis for an extended period of time. Also, history of Burkitt's lymphoma in 2002. At that time, she had evidence of liver, breast and lung disease. She previously had endoscopic sinus surgery in the distant past. She had an abscess developed in the mid portion of her forehead in October this past year. This was treated several times with antibiotics, but only to recur. Further studies showed evidence of chronic sinusitis with erosion into the frontal bone. She underwent endoscopic sinus surgery by Dr. Reinaldo Brown on 07/15/2018. She underwent endoscopic bilateral complete ethmoidectomy with frontal duct exploration and bilateral maxillary antrostomies with removal of tissue. There was evidence of terrell purulence and polyps. No pathologic specimen was obtained. Intraoperative cultures were negative for AFB, fungus, and bacteria since the patient had been on previous antibiotics. She was continued on a 6-week course of IV antibiotic therapy, then switched to oral treatment. Initially on ceftriaxone, now on cefdinir. Main side effect had been loose stools. This was controlled with Lomotil. Last week, laboratory studies showed elevated liver function tests. She was scheduled to have repeat studies today along with ultrasound of the liver, although the patient reported increased diarrhea, cough, intermittent sputum production over the last 24 hours. She was unable to complete an outpatient workup and was sent to the Emergency Room for further treatment. She denies any fever, chills or sweats. Has cough with yellow sputum production without hemoptysis. Mild dyspnea. No palpitations. Has moderate amount of postnasal drip. No increased drainage from her forehead wound. Has had nausea, but no vomiting. No abdominal pain. Stools are liquid and frequent. No blood in her stool. Denies any rash or decubiti. Has noticed no adenopathy. REVIEW OF SYSTEMS: A 10-point review of systems was negative other than what is described above. ALLERGIES: DOXYCYCLINE, BACTRIM. MEDICATIONS: As noted on her MAR and was given Levaquin today. [address] [address] CONSULTATION Name: CHRISTIAN KHAN MCKAYLA Room #: 460-P ADM IN M.R.#: [id number] Admission: 10/02/18 Attend Phys: Layne Harper Discharge: Date of : 51 Report #: [id number] PAST MEDICAL HISTORY: Burkitt's lymphoma, hypothyroidism, hypertension, hyperlipidemia, cholecystectomy, gallstone pancreatitis, chronic sinusitis, now with frontal sinusitis and osteomyelitis with sinus tract. FAMILY HISTORY: Noncontributory. SOCIAL HISTORY: Nonsmoker, no significant alcohol intake. PHYSICAL EXAMINATION: VITAL SIGNS: Afebrile with pulse 58, respirations 13, blood pressure 116/63. Oxygen saturation normal on room air. GENERAL: Alert and cooperative. She was a bit dehydrated. HEENT: Eyes without scleral icterus or conjunctivitis. Mouth without mucositis or lesion. NECK: Supple with no thyromegaly or mass. LUNGS: Crackles in the bases bilaterally. HEART: Regular without murmur, gallop or rub. EXTREMITIES: Trace peripheral edema with no cyanosis or clubbing. SKIN: No rash or decubitus. No palpable adenopathy. Frontal sinus tract with eschar middle of her forehead. ABDOMEN: Soft and nontender. No hepatosplenomegaly or mass. NEUROLOGIC: Cranial nerves intact. Strength in the upper and lower extremities normal. Sensation normal. LABORATORY STUDIES: BNP 502. Sodium 142, potassium 3.8, bicarbonate 26, creatinine 1.0, lipase 35, bilirubin 1, alkaline phosphatase 639, ALT 110, AST 221. Albumin at 3.2. Hemoglobin 13, WBC 6.2, platelet count 129,000. Differential unremarkable. Abdominal x-ray showed normal bowel gas pattern. She had bilateral perihilar and lower lobe infiltrates with small effusions. Ultrasound of the abdomen showed fatty infiltration of the liver. IMPRESSION: 1. 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 She has undergone endoscopic surgery now over 2 months postop. She has persistent sinus disease as noted by her recent outpatient CT scan, which I have just reviewed. This will need to be further evaluated by ENT. 2. Suspected antibiotic-associated diarrhea. We will still need to rule out Clostridium difficile colitis, although she is not having fever or no leukocytosis. 3. Hepatitis with increased alkaline phosphatase suggesting biliary tract disease. She has been on prolonged course of antibiotics including ceftriaxone. Although, she does not have gallbladder, it is still possible we are dealing with precipitation within the biliary tract itself, although her ultrasound showed the ducts to be normal. Other consideration would be recurrence of her lymphoma or autoimmune liver disease. I would still suspect [facility] [address] [place] [address] CONSULTATION Name: CHRISTIAN KHAN Room #: 460-P ADM IN M.R.#: [id number] Admission: 10/02/18 Attend Phys: Layne Harper Discharge: Date of : 51 Report #: [id number] antibiotic-associated liver disease. 4. Bilateral infiltrates and effusions. Some of this may be edema versus aspiration induced. The patient does have a fair amount of cough and sputum production. RECOMMENDATIONS: 1. We will repeat cultures of her sputum, blood and check C. difficile by PCR. 2. Agree with GI service evaluation. 3. Would have ENT reevaluate her sinuses whether during this hospitalization or early post-discharge. 4. Endoscopic evaluation. We will need tissue sent to pathology. We will empirically place on enteral vancomycin pending stool studies. Continue empiric antibiotic therapy for pneumonia pending cultures. <ELECTRONICALLY SIGNED> By: Shaw Villasenor MD 10/03/18 1122 1818 [id number] Shaw Villasenor MD /nt
--- NOTE | ~2018-10-02 | EKG ---
[address] [facility] [place] [address] ELECTROCARDIOGRAM REPORT Name: CHRISTIAN KHAN Room #: 460-P ADM IN M.R.#: [id number] Admission: 10/02/18 Attend Phys: Layne Harper Discharge: Date of : 51 Report #: [id number] THIS REPORT FOR: //name// [facility] ED Test Date: 2018-10-02 Test Time: 13:23:31 Pat Name: CHRISTIAN KHAN Department: Room: [facility] Gender: F Patient Service Representative: EMMANUEL : 1955 Requested By: Shaw Joiner Order Number: [id number] MD: Ángel Bedoya Measurements Intervals [place] Rate: 65 P: 18 SC: 147 QRS: -29 QRSD: 108 T: 11 QT: 454 QTc: 473 Interpretive Statements Sinus rhythm Borderline left axis deviation Compared to ECG 04/27/2002 13:22:57 No significant changes Electronically Signed On 10-02-2018 20:14:36 [employer] by Ángel Bedoya [email or web address] <ELECTRONICALLY SIGNED> By: Ángel Bedoya MD 10/02/182013 1323 1323 Ángel Bedoya MD /PB
[2018-10-02 12:29] VITALS: BP 192/70
[2018-10-02 13:59] LABS: ABSOLUTE NEUTROPHILS 4.6 thou/uL (1.4-8.2); BASOPHILS 0.6 % (0.0-2.0); EOSINOPHILS 1.2 % (0.0-3.0); HEMATOCRIT 39.8 % (37.0-47.0); LYMPHOCYTES 16.9 % (24.0-44.0); MCH 30.3 pg (26.0-34.0); MCHC 32.6 g/dL (28.0-37.0); MCV 93.1 fL (80.0-100.0); MONOCYTES 6.8 % (1.0-8.0); PLATELET COUNT 129 thou/uL (150-400); POLYS 74.5 % (36.0-66.0); RBC 4.28 mil/uL (4.20-5.00); RDW 15.3 % (10.5-14.5); WBC 6.2 thou/uL (4.0-11.0)
[2018-10-02 14:08] LABS: ANION GAP 11 mmol/L (7-16); BUN 12 mg/dL (7-18); CALCIUM 9.3 mg/dL (8.5-10.1); CHLORIDE 105 mmol/L (98-107); CO2 26 mmol/L (21-32); GLUCOSE 95 mg/dL (74-106); POTASSIUM 3.8 mmol/L (3.5-5.1); SODIUM 142 mmol/L (136-145)
[2018-10-02 14:16] LABS: ALBUMIN 3.2 g/dL (3.4-5.0); LIPASE 35 U/L (73-393); SGOT 221 U/L (15-37); SGPT 110 U/L (30-65); TOTAL PROTEIN 6.4 g/dL (6.4-8.2); TROPONIN-I <0.06 ng/mL (<0.06)
[2018-10-02 17:29] VITALS: BP 150/58
[2018-10-02 17:42] VITALS: BP 168/63
[2018-10-02 18:40] VITALS: BP 177/57
[2018-10-02 20:57] LABS: % SATURATION 14 % (20-39); IRON 45 ug/dL (50-170); TIBC 328 ug/dL (250-450)
[2018-10-02 23:36] VITALS: BP 107/45
[2018-10-03 00:08] LABS: HAV IgM AB (ANTI-HAV IgM) Negative (Negative); HEPATITIS B SURFACE AG Negative (Negative); HEPATITIS C VIRUS AB 0.2 (0.0-0.9)
[2018-10-03 04:10] VITALS: BP 154/55
[2018-10-03 05:07] LABS: CALCIUM 9.2 mg/dL (8.5-10.1); CREATININE 1.1 mg/dL (0.6-1.0); POTASSIUM 3.4 mmol/L (3.5-5.1)
[2018-10-03 05:13] LABS: ALBUMIN 3.2 g/dL (3.4-5.0); TOTAL BILIRUBIN 0.5 mg/dL (<0.1-1.0); TOTAL PROTEIN 6.6 g/dL (6.4-8.2)
[2018-10-03 08:45] VITALS: BP 126/74
[2018-10-03 15:35] VITALS: BP 137/44
[2018-10-03 21:30] VITALS: BP 139/52
[2018-10-04 03:00] VITALS: BP 149/70
[2018-10-04 05:20] LABS: ALBUMIN 3.3 g/dL (3.4-5.0); CALCIUM 9.7 mg/dL (8.5-10.1); CREATININE 1.1 mg/dL (0.6-1.0); POTASSIUM 3.5 mmol/L (3.5-5.1); TOTAL BILIRUBIN 0.5 mg/dL (<0.1-1.0); TOTAL PROTEIN 6.8 g/dL (6.4-8.2)
[2018-10-04 08:18] VITALS: BP 143/53
[2018-10-04 13:50] VITALS: BP 91/56
[2018-10-04 18:37] LABS: URINE BILIRUBIN NEGATIVE (Negative); URINE BLOOD NEGATIVE (Negative); URINE CLARITY CLEAR; URINE COLOR YELLOW; URINE GLUCOSE-RANDOM* NEGATIVE (Negative); URINE KETONES NEGATIVE (Negative); URINE NITRITE-REFLEX NEGATIVE (Negative); URINE PROTEIN (DIPSTICK) NEGATIVE (Negative); URINE SPECIFIC GRAVITY 1.025 (1.005-1.035); URINE UROBILINOGEN 0.2 E.U./dl (0.2-1.0)
[2018-10-04 18:38] LABS: URINE LEUKOCYTES-REFLEX TRACE (Negative)
[2018-10-04 19:47] VITALS: BP 158/60
[2018-10-05 04:00] VITALS: BP 155/35
[2018-10-05 05:50] LABS: HEMATOCRIT 35.6 % (37.0-47.0); HEMOGLOBIN 11.6 gm/dL (12.0-15.0); MCH 30.1 pg (26.0-34.0); MCHC 32.5 g/dL (28.0-37.0); MCV 92.8 fL (80.0-100.0); RBC 3.84 mil/uL (4.20-5.00); RDW 15.6 % (10.5-14.5); WBC 5.1 thou/uL (4.0-11.0)
[2018-10-05 06:08] LABS: ALBUMIN 2.8 g/dL (3.4-5.0); CALCIUM 9.3 mg/dL (8.5-10.1); POTASSIUM 3.3 mmol/L (3.5-5.1); TOTAL BILIRUBIN 0.5 mg/dL (<0.1-1.0); TOTAL PROTEIN 5.8 g/dL (6.4-8.2)
[2018-10-05 08:00] VITALS: BP 177/74
[2018-10-05 12:06] LABS: ANA INTERPRETATION Negative (Negative)
[2018-10-05] MEDS ORDERED: LEVAQUIN 500 M500 M1 PO (12:21)
[2018-10-05] MEDS ORDERED: ATENOLOL 25 MG25 M1 PO (12:26)
[2018-10-05 13:56] VITALS: BP 177/74
[2018-10-05 14:08] LABS: HAV IgM AB (ANTI-HAV IgM) Negative (Negative); HEPATITIS B SURFACE AG Negative (Negative); HEPATITIS C VIRUS AB 0.4 (0.0-0.9)
[2018-10-05 15:16] VITALS: BP 177/74
[2018-10-05 18:08] LABS: ANA INTERPRETATION Negative (())
== END 2018-10-05 15:19 | disposition home or self-care (01) | DRG 391 ==
LOC: ER 12:28 → EROBS 16:27 → 4W 16:27
PROVIDERS: Emergency Medicine; Hospitalist; Internal Medicine Gastroenterology
DX: K52.9 Noninfective gastroenteritis and colitis, unspecified (principal); J18.9 Pneumonia, unspecified organism; I50.30 Unspecified diastolic (congestive) heart failure; I10 Essential (primary) hypertension; E78.5 Hyperlipidemia, unspecified; E03.9 Hypothyroidism, unspecified; J32.9 Chronic sinusitis, unspecified; K21.9 Gastro-esophageal reflux disease without esophagitis; K75.9 Inflammatory liver disease, unspecified; Z79.899 Other long term (current) drug therapy; Z90.710 Acquired absence of both cervix and uterus; Z90.49 Acquired absence of other specified parts of digestive tract; Z88.2 Allergy status to sulfonamides; Z88.8 Allergy status to other drugs, medicaments and biological substances
CPT/HCPCS: 10045; 10047

== ENCOUNTER 2018-10-26 05:35 | Day surgery (SDC) | payer OTHER ==
[~2018-10-26] VITALS: Ht 167.6 cm; Wt 112.5 kg
--- NOTE | ~2018-10-26 | O ---
[facility] [place] [address] OPERATIVE REPORT Name: CHRISTIAN KHAN Room #: 150-5 [facility] M.R.#: [id number] Admission: 10/26/18 Attend Phys: Reinaldo Brown MD Discharge: Date of : 51 Report #: [id number] THIS REPORT FOR: //name// CC: Reinaldo Jetttami DATE OF SERVICE: 10/26/2018 PREOPERATIVE DIAGNOSIS: Chronic frontal sinusitis. POSTOPERATIVE DIAGNOSIS: Chronic frontal sinusitis. OPERATIVE PROCEDURE: Revision frontal duct exploration with image guidance with general by laryngeal mask. DESCRIPTION OF PROCEDURE: The patient was taken to the operating room and placed in supine position. General anesthesia was induced by laryngeal mask. Once adequate general anesthesia was obtained, the patient was draped in a sterile manner. The patient was also calibrated to the fusion image guidance system for image guidance surgery throughout the procedure. The nasal endoscope was used to visualize the left nasal cavity. Local anesthesia was induced by submucoperiosteal injection of 1% lidocaine with 1:100,000 epinephrine and topical application of cocaine solution. I debrided some tissue in the area of the anterior connection of the middle turbinate to the lateral wall to expose the frontal duct. I then verified the duct with a 90-degree ostium seeker and then placed a balloon into the sinus opening and then dilated the opening several times. There was no purulence that came out of the sinus, but there was an excellent opening into the sinus, which was verified with an ostium seeker. Surgiflo was placed into the duct and ethmoid cavity for hemostasis. Blood loss was minimal. The patient was then awoken and taken to the recovery room in stable condition for postoperative monitoring. By: 1122 1146 Reinaldo Brown MD /nt
[~2018-10-26 05:35] MED LIST changes: +ATENOLOL 25 MG25 M1 PO; +LEVAQUIN 500 M500 M1 PO; +NORCO 7.5-3251 EACH PO; +PROBIOTIC1 EAC1 PO; +SYNTHROID112 MC1 PO; -SYNTHROID112 MCG PO
[2018-10-26 08:53] VITALS: BP 148/50
[2018-10-26 11:54] VITALS: BP 148/50
== END 2018-10-26 12:30 | disposition home or self-care (01) ==
LOC: OR 05:35 → TBA 05:35 → OR 10:39
DX: J32.1 Chronic frontal sinusitis (principal); I10 Essential (primary) hypertension; E78.00 Pure hypercholesterolemia, unspecified; D64.9 Anemia, unspecified; K21.9 Gastro-esophageal reflux disease without esophagitis; E03.9 Hypothyroidism, unspecified; Z90.49 Acquired absence of other specified parts of digestive tract; Z90.710 Acquired absence of both cervix and uterus; Z98.890 Other specified postprocedural states; Z87.19 Personal history of other diseases of the digestive system; Z88.2 Allergy status to sulfonamides; Z88.8 Allergy status to other drugs, medicaments and biological substances; Z79.899 Other long term (current) drug therapy
CPT/HCPCS: 50010; 50101; 50286; 50386; 50398; 50573; 50849; 51751; 52290; 52291; 62110; 62900; 64037; 70005